=== PATIENT | female | born 1940 ===

== ENCOUNTER 2022-11-08 15:21 | Emergency (ER) | payer OTHER ==
[~2022-11-08] VITALS: Ht 157.5 cm; Wt 77.1 kg
[~2022-11-08 15:21] MED LIST: AMLODIPINE-BEN1 EAC5 PO; JANUMET 50-5001 EACH PO; METFORMIN HCL500 M3 PO; NALDOL80 MG PO
== END 2022-11-08 19:53 | disposition home or self-care (01) ==
LOC: ER 15:21
DX: S05.91XA Unspecified injury of right eye and orbit, initial encounter (principal); W18.30XA Fall on same level, unspecified, initial encounter; Y93.9 Activity, unspecified; Y92.63 Factory as the place of occurrence of the external cause; E11.9 Type 2 diabetes mellitus without complications; Z79.84 Long term (current) use of oral hypoglycemic drugs; I10 Essential (primary) hypertension